=== PATIENT | female | born 1935 | race Caucasian/White ===

== ENCOUNTER → 2016-09-21 | Outpatient (CLI) | payer MEDICARE, BC ==
[~2016-09-21] MED LIST: ESTRACE PO; PEPCID 20MG TAB20 MG PO; ZOCOR 20MG20 MG PO; [UNRECOGNIZED DRUG - REMARK]
== END ==
LOC: MC.RAD 12:51
DX: Z12.31 Encounter for screening mammogram for malignant neoplasm of breast (principal)

== ENCOUNTER → 2016-10-06 | Outpatient (CLI) | payer MEDICARE, BC | LOC: COL.RAD 13:47 | DX: M25.551 Pain in right hip (principal); G89.29 Other chronic pain; M16.11 Unilateral primary osteoarthritis, right hip | CPT/HCPCS: J3301; Q9967 ==

== ENCOUNTER 2017-04-20 15:23 | Inpatient (IN) | payer MEDICARE, BC ==
[~2017-04-20] VITALS: Ht 162.6 cm; Wt 68.2 kg
[~2017-04-20 15:23] MED LIST changes: +ESTRACE 1MG1 MG/TAB PO; -ESTRACE PO
[2017-06-07] VITALS (9 sets, daily range): BP systolic 129–176; BP diastolic 44–71; PULSE 47–91; TEMP 97.6–98.9
[2017-06-07] MEDS ORDERED: ZESTRIL 10MG10 MG PO (11:34)
[2017-06-07] MEDS ORDERED: ZOCOR 80MG80 MG PO (11:35)
[2017-06-07] MEDS ORDERED: ESTRACE0.5 MG PO (11:35)
[2017-06-07] MEDS ORDERED: PRILOSEC 20MG20 MG PO (11:35)
[2017-06-07] MEDS ORDERED: VITAMIN B12 681 TAB PO (11:36)
[2017-06-07] MEDS ORDERED: FLONASEALLERGY NS (11:36)
[2017-06-07] MEDS ORDERED: PHARMASSURE CHE30 MG PO (11:37)
[2017-06-07] MEDS ORDERED: MAGNESIUM250 M1 PO (11:37)
[2017-06-07] MEDS ORDERED: MELATONIN5 M1 PO (11:38)
[2017-06-07] MEDS ORDERED: GLUCOSAMINE & C1 TAB PO (11:39)
[2017-06-07] MEDS ORDERED: CALCIUM 600MG+D1 TAB PO (11:39)
[2017-06-07] MEDS ORDERED: EPA FISH OIL1 SGL PO (11:40)
[2017-06-07] MEDS ORDERED: FIBERCON PO (11:40)
[2017-06-07] MEDS ORDERED: [UNRECOGNIZED DRUG - CODE] PO (11:41)
[2017-06-07] MEDS ORDERED: TYLENOL 500MG500 MG PO (11:52)
[2017-06-08 00:55] VITALS: BP 142/47; PULSE 66; TEMP 97.5
[2017-06-08 04:00] VITALS: BP 137/68; PULSE 82; TEMP 98.5
[2017-06-08 06:55] LABS: HEMATOCRIT 36.1 % (37.0-47.0); HEMOGLOBIN 11.6 g/dl (12.5-16.0)
[2017-06-08 07:58] VITALS: BP 147/62; PULSE 83; TEMP 97.3
[2017-06-08 12:42] VITALS: BP 135/66; PULSE 80; TEMP 98.3
[2017-06-08 16:18] VITALS: BP 168/60; PULSE 104
[2017-06-08 20:00] VITALS: BP 155/55; PULSE 91; TEMP 98.5
[2017-06-09] VITALS: BP 145/43; PULSE 80; TEMP 97.4
[2017-06-09 03:57] VITALS: BP 168/51; PULSE 98; TEMP 98.7
[2017-06-09 07:18] LABS: HEMATOCRIT 33.2 % (37.0-47.0); HEMOGLOBIN 10.7 g/dl (12.5-16.0)
[2017-06-09 08:09] VITALS: BP 153/50; PULSE 93; TEMP 98.5
[2017-06-09 12:11] VITALS: BP 135/65; PULSE 105; TEMP 97.8
== END 2017-06-09 15:30 | disposition home or self-care (01) | DRG 470 ==
LOC: JCC 06-07 07:30
PROVIDERS: Orthopaedic Surgery
PROC: 0SR90JZ Replacement of Right Hip Joint with Synthetic Substitute, Open Approach (ICD-10-PCS; principal; 2017-06-07 15:25)
DX: M16.11 Unilateral primary osteoarthritis, right hip (principal); R11.0 Nausea; E78.5 Hyperlipidemia, unspecified; K21.9 Gastro-esophageal reflux disease without esophagitis; Z79.890 Hormone replacement therapy
CPT/HCPCS: C1713; C1776; J0360; J0690; J1170; J2250; J2274; J2405; J2704; J3010; J7042; J7120

== ENCOUNTER → 2017-05-29 | Outpatient (CLI) | payer MEDICARE, BC ==
[~2017-05-29] MED LIST changes: -ESTRACE 1MG1 MG/TAB PO; +ESTRACE PO
== END ==
LOC: COL.LAB 13:29
DX: Z01.812 Encounter for preprocedural laboratory examination (principal)

== ENCOUNTER → 2018-10-10 | Outpatient (CLI) | payer MEDICARE, BC ==
[~2018-10-10] MED LIST changes: +CALCIUM 600MG+D1 TAB PO; +EPA FISH OIL1 SGL PO; +ESTRACE 1MG1 MG/TAB PO; -ESTRACE PO; +ESTRACE0.5 MG PO; +FIBERCON PO; +FLONASEALLERGY NS; +GLUCOSAMINE & C1 TAB PO; +MAGNESIUM250 M1 PO; +MELATONIN5 M1 PO; +PHARMASSURE CHE30 MG PO; +PRILOSEC 20MG20 MG PO; +TYLENOL 500MG500 MG PO; +VITAMIN B12 681 TAB PO; +ZESTRIL 10MG10 MG PO; +ZOCOR 80MG80 MG PO; +[UNRECOGNIZED DRUG - CODE] PO
== END ==
LOC: MC.RAD 13:25
DX: Z12.31 Encounter for screening mammogram for malignant neoplasm of breast (principal); N63.20 Unspecified lump in the left breast, unspecified quadrant

== ENCOUNTER → 2018-10-17 | Outpatient (CLI) | payer MEDICARE, BC | LOC: MC.RAD 12:44 | DX: N63.20 Unspecified lump in the left breast, unspecified quadrant (principal) ==

== ENCOUNTER → 2018-10-19 | Outpatient (CLI) | payer MEDICARE, BC | LOC: MC.RAD 10:08 | DX: N63.20 Unspecified lump in the left breast, unspecified quadrant (principal); Z98.82 Breast implant status ==

== ENCOUNTER → 2019-05-08 | Outpatient (CLI) | payer MEDICARE, BC ==
[~2019-05-08] MED LIST changes: +CALCIUM 600-D 61 TAB PO; +CLARITIN 1010 MG/TAB PO; +GLUCOSAMIN 500 PO; +MAG OX 250 PO; +MELAT3MGTAB PO; +MOBIC15 MG PO; +OMEGA-31 SGL PO; +PRINIVIL10 MG PO; +VITAMIN B-1000 MCG/T PO; +ZINC LOZENGES1 LOZ PO
== END ==
LOC: MC.RAD 13:00
DX: Z98.890 Other specified postprocedural states (principal)
CPT/HCPCS: G0279

== ENCOUNTER → 2020-05-25 | Outpatient (CLI) | payer MEDICARE, BC | LOC: MC.RAD 14:19 | DX: Z12.31 Encounter for screening mammogram for malignant neoplasm of breast (principal); Z98.890 Other specified postprocedural states ==

== ENCOUNTER → 2021-12-27 | Outpatient (CLI) | payer MEDICARE, BC | LOC: COL.RAD 08:30 | DX: M25.552 Pain in left hip (principal) | CPT/HCPCS: J3301; Q9967 ==

== ENCOUNTER → 2022-07-15 | Outpatient (CLI) | payer MEDICARE, BC | LOC: MC.RAD 13:52 | DX: Z12.31 Encounter for screening mammogram for malignant neoplasm of breast (principal) ==

== ENCOUNTER → 2023-07-17 | Outpatient (CLI) | payer MEDICARE, BC | LOC: CANSCHCLI → MC.RAD 13:57 | DX: Z12.31 Encounter for screening mammogram for malignant neoplasm of breast (principal) ==